=== PATIENT | female | born 1990 | race Caucasian/White ===

== ENCOUNTER 2018-07-15 11:09 | Outpatient (CLI) | payer SELFPAY | END 2018-07-15 21:15 | disposition home or self-care (01) | LOC: SRD 11:09 | PROVIDERS: ATTEND Pediatrics | DX: N93.9 Abnormal uterine and vaginal bleeding, unspecified (principal) | CPT/HCPCS: 76801; 76817 ==

== ENCOUNTER 2019-07-26 12:26 | Outpatient (CLI) | payer OTHER, SELFPAY | END 2019-07-26 20:33 | disposition home or self-care (01) | LOC: SLB 12:26 | PROVIDERS: ATTEND Pediatrics | DX: Z03.818 Encounter for observation for suspected exposure to other biological agents ruled out (principal) | CPT/HCPCS: C9803; U0003 ==

== ENCOUNTER 2019-11-27 13:22 | Outpatient (CLI) | payer OTHER, SELFPAY ==
[2019-11-27 14:38] LABS: BASOPHILS % (AUTO) 0.6 % (0.0-2.0); EOSINOPHILS # (AUTO) 0.1 K/uL (0.0-0.4); EOSINOPHILS % (AUTO) 1.4 % (0.0-4.0); HEMATOCRIT 40.2 % (36-48); HEMOGLOBIN 13.6 g/dL (12.0-16.0); LYMPHOCYTES # (AUTO) 2.5 K/uL (1.0-5.5); LYMPHOCYTES % (AUTO) 39.7 % (20.5-51.5); MEAN CORPUSCULAR HEMOGLOBIN 29 pg (27-31); MEAN CORPUSCULAR HGB CONC 34 % (32-36); MEAN CORPUSCULAR VOLUME 85 fL (79.0-98.0); MONOCYTES # (AUTO) 0.4 K/uL (0.0-1.0); NEUTROPHILS # (AUTO) 3.2 K/uL (1.8-7.7); NEUTROPHILS % (AUTO) 52.3 % (40.0-70.0); PLATELET COUNT (AUTO) 186 K/uL (130-430); RED BLOOD CELL COUNT(AUTO) 4.73 MIL/uL (4.2-6.2); RED CELL DISTRIBUTION WIDTH 12.7 % (9.0-15.0); WHITE BLOOD COUNT (AUTO) 6.2 K/uL (4.8-10.8)
[2019-11-27 15:32] LABS: COLOR,URINE YELLOW (YELLOW)
[2019-11-27 15:33] LABS: CLARITY/URINE CLEAR (CLEAR)
[2019-11-27 15:34] LABS: BILIRUBIN,URINE NEGATIVE (NEGATIVE); BLOOD, URINE NEGATIVE (NEGATIVE); GLUCOSE,URINE NEGATIVE (NEGATIVE); KETONES,URINE NEGATIVE (NEGATIVE); LEUKOCYTE ESTERASE ,URINE NEGATIVE (NEGATIVE); PROTEIN URINE NEGATIVE (NEGATIVE)
[2019-11-27 15:35] LABS: NITRITE, URINE NEGATIVE (NEGATIVE); UROBILINOGEN,URINE 0.2 (0.2-1.0)
[2019-11-27 16:23] LABS: POTASSIUM 4.2 mmol/L (3.5-5.1)
[2019-11-27 16:24] LABS: ALBUMIN 3.5 g/dL (3.4-4.8); CALCIUM 8.3 mg/dL (8.4-11.0); CREATININE 0.6 mg/dL (0.55-1.30); TOTAL BILIRUBIN 0.4 mg/dL (0.0-1.0)
[2019-11-27 16:25] LABS: THYROID STIMULATING HORMONE 1.24 uIu/mL (0.36-3.74)
[2019-11-28 06:06] LABS: FOLATE (FOLIC ACID) >20.0 ng/mL (>3.0)
[2019-11-28 08:12] LABS: FERRITIN 34 ng/mL (15-150)
== END 2019-11-27 19:52 | disposition home or self-care (01) ==
LOC: SLB 13:22
PROVIDERS: ATTEND Pediatrics
DX: Z00.00 Encounter for general adult medical examination without abnormal findings (principal)
CPT/HCPCS: 36415; 80053; 80061; 81003; 82306; 82607; 82728; 82746; 84439; 84443-TC; 85025